=== PATIENT | male | born 1970 | race African-American/Black ===

== ENCOUNTER 2023-02-04 11:07 | Observation (INO) | payer MEDICAID, OTHER ==
[2023-02-04 12:07] LABS: #Basophils 0.1 10x3/uL (0.0-0.2); #Eosinphils 0.1 10x3/uL (0.0-0.5); #Monocytes 0.7 10x3/uL (0.0-1.1); #Neutrophils 5.3 10x3/uL (1.5-8.4); %Basophils 0.6 % (0.0-2.0); %Eosinophils 1.4 % (0.0-6.0); %Lymphocytes 26.3 % (18.0-47.0); %Monocytes 8.3 % (0.0-10.0); %Neutrophils 62.5 % (40.0-75.0); Hematocrit 47.7 % (38.8-50.0); Hemoglobin 15.8 g/dL (13.5-17.5); Mean Corpuscular HGB CONC 33.1 g/dL (32.0-36.0); Mean Corpuscular Hemoglobin 28.2 pg (27.0-33.0); Mean Corpuscular Volume 85.2 fl (81.2-95.1); Mean Platelet Volume 8.9 fl (7.4-10.4); Platelet Count 215 10x3/uL (150-450); RBC Distribution Width 15.5 % (11.5-14.5); White Blood Cell (WBC) Count 8.5 10x3/uL (3.5-10.5)
[2023-02-04 12:18] LABS: ALT (SGPT) 37 U/L (8-55); AST (SGOT) 30 U/L (5-34); Albumin 3.9 g/dL (3.5-5.0); Alkaline Phosphatase 89 U/L (40-110); Anion Gap 14 mmol/L (10-20); BUN (Urea Nitrogen) 11 mg/dL (8.4-25.7); Bilirubin, Total 0.6 mg/dL (0.2-1.2); Calc. Creatinine Clearance 0 mL/min (70-130); Calcium 8.4 mg/dL (7.8-10.44); Carbon Dioxide 30 mmol/L (22-29); Chloride 101 mmol/L (98-107); Estimated GFR 87; Globulin 3.1 g/dL (2.4-3.5); Glucose 117 mg/dL (70-105); Potassium 3.7 mmol/L (3.5-5.1); Sodium 141 mmol/L (136-145)
[2023-02-04 12:24] LABS: Troponin I 0.025 ng/mL (< 0.028)
[2023-02-04] MEDS ORDERED: Nitroglycerin 2% Ointment 1 INCH/1 GM Packet ONE (15:05)
[2023-02-04] MEDS ORDERED: Nitroglycerin 0.4 MG TAB 1 EACH ONE (15:20)
[2023-02-04 15:33] LABS: Troponin I 0.012 ng/mL (< 0.028)
[2023-02-04] MEDS ORDERED: Ondansetron PF 4 MG/2 ML Vial IVP PRN (16:55)
[2023-02-04 18:44] LABS: Troponin I 0.015 ng/mL (< 0.028)
[2023-02-04 21:51] LABS: Troponin I 0.017 ng/mL (< 0.028)
[2023-02-04 22:54] LABS: Amphetamine Not Detected (NotDetected); Barbiturates Screen Not Detected (NotDetected); Benzodiazepine Screen Not Detected (NotDetected); Cocaine Metabolite Screen Detected (NotDetected); Methadone Not Detected (NotDetected); Methamphetamine Not Detected (NotDetected); Opiate Screen Detected (NotDetected); Oxycodone Screen Not Detected (NotDetected); Phencyclidine (PCP) Not Detected (NotDetected); THC/Cannabinoid Screen Not Detected (NotDetected); Tricyclic Screen Not Detected (NotDetected)
[2023-02-04 22:59] VITALS: BMI 32.5
[2023-02-05] MEDS ORDERED: hydrOXYzine 25 MG TAB PO SCH (01:00)
[2023-02-05] MEDS ORDERED: Lorazepam 2 MG/ML VIAL SLOW IVP SCH (01:30)
[2023-02-05 05:25] LABS: #Eosinphils 0.1 10x3/uL (0.0-0.5); #Monocytes 0.8 10x3/uL (0.0-1.1); #Neutrophils 4.2 10x3/uL (1.5-8.4); %Basophils 0.5 % (0.0-2.0); %Eosinophils 1.3 % (0.0-6.0); %Lymphocytes 34.2 % (18.0-47.0); %Monocytes 9.5 % (0.0-10.0); %Neutrophils 53.6 % (40.0-75.0); Hematocrit 45.1 % (38.8-50.0); Hemoglobin 14.8 g/dL (13.5-17.5); Mean Corpuscular HGB CONC 32.8 g/dL (32.0-36.0); Mean Corpuscular Hemoglobin 27.8 pg (27.0-33.0); Mean Corpuscular Volume 84.8 fl (81.2-95.1); Platelet Count 198 10x3/uL (150-450); RBC Distribution Width 15.6 % (11.5-14.5); Red Blood Cell (RBC) Count 5.32 10x6/uL (4.32-5.72); White Blood Cell (WBC) Count 7.9 10x3/uL (3.5-10.5)
[2023-02-05 05:27] LABS: Anion Gap 15 mmol/L (10-20); BUN (Urea Nitrogen) 13 mg/dL (8.4-25.7); Calc. Creatinine Clearance 137 mL/min (70-130); Calcium 8.4 mg/dL (7.8-10.44); Carbon Dioxide 26 mmol/L (22-29); Chloride 103 mmol/L (98-107); Estimated GFR 95; Glucose 139 mg/dL (70-105); Potassium 3.7 mmol/L (3.5-5.1); Sodium 140 mmol/L (136-145)
[2023-02-05] MEDS ORDERED: Aspirin Chewable 81 MG TAB PO SCH (09:00)
[2023-02-05 09:25] LABS: Magnesium 1.7 mg/dL (1.6-2.6)
[2023-02-05] MEDS ORDERED: Magnesium 2 GM/50 ML(in water) 2 GM in Premix 1 BAG IVPB SCH (10:00)
[2023-02-05] MEDS ORDERED: Potassium Chloride 20 MEQ TAB PO SCH (10:00)
[2023-02-05] MEDS ORDERED: Lorazepam 0.5 MG TAB PO PRN (10:20)
[2023-02-05] MEDS: Nicotine 14 MG PATCH TD SCH ×2 (10:33→10:46)
[2023-02-05] MEDS ORDERED: cloNIDine 0.1 MG TAB PO PRN ×2 (10:41→13:20)
[2023-02-05] MEDS ORDERED: Baclofen 10 MG TAB PO PRN ×2 (10:41→11:01)
[2023-02-05] MEDS ORDERED: hydrOXYzine 25 MG TAB PO PRN (10:41)
[2023-02-05] MEDS ORDERED: Loratadine 10 MG TAB PO PRN (11:05)
[2023-02-05 11:14] LABS: Troponin I 0.033 ng/mL (< 0.028)
[2023-02-05] MEDS ORDERED: Clopidogrel Bisulfate 75 MG TAB PO SCH (11:15)
[2023-02-05] MEDS ORDERED: Clotrimazole 1% Cream 15 GM TUBE TOP SCH (12:00)
[2023-02-05 12:46] VITALS: TEMP 97.7
[2023-02-05] MEDS ORDERED: Amlodipine 5 MG TAB PO SCH (13:15)
[2023-02-05] MEDS ORDERED: Nitroglycerin 2% Ointment 1 INCH/1 GM Packet TOP SCH ×2 (13:15→14:00)
[2023-02-05 13:18] VITALS: BP 144/74
[2023-02-05 14:20] LABS: Troponin I 0.036 ng/mL (< 0.028)
[2023-02-05] MEDS ORDERED: Cephalexin 500 MG CAP PO SCH (15:00)
[2023-02-05] MEDS ORDERED: traZODone HCl 50 MG TAB PO SCH (21:00)
[2023-02-05] MEDS ORDERED: Atorvastatin Calcium 40 MG TAB PO SCH (21:00)
[2023-02-05] MEDS ORDERED: Heparin 5,000 UNITS/ML VIAL SC SCH (21:00)
[2023-02-06] MEDS ORDERED: [UNRECOGNIZED DRUG - OTHER] PO SCH (09:00)
[2023-02-06] MEDS ORDERED: Amlodipine 5 MG TAB PO SCH (09:00)
[2023-02-06] MEDS ORDERED: Clopidogrel Bisulfate 75 MG TAB PO SCH (09:00)
[2023-02-06] MEDS ORDERED: Tamsulosin HCl 0.4 MG CAP PO SCH (09:00)
[2023-02-06] MEDS ORDERED: traZODone HCl 50 MG TAB PO SCH (09:00)
[2023-02-06] MEDS ORDERED: Torsemide 20 MG TAB PO SCH ×2 (09:00)
== END 2023-02-05 15:43 | disposition left against medical advice (07) ==
LOC: CSHERS 11:07 → CSHERHOLD 16:40 → CSHTELE 22:44
PROVIDERS: ADMIT Internal Medicine; ATTEND Internal Medicine
PROC: B246ZZZ Ultrasonography of Right and Left Heart (ICD-10-PCS; principal; 2023-02-04)
DX: R07.2 Precordial pain (principal); I10 Essential (primary) hypertension; B20 Human immunodeficiency virus [HIV] disease; F31.9 Bipolar disorder, unspecified; F14.10 Cocaine abuse, uncomplicated; F17.210 Nicotine dependence, cigarettes, uncomplicated; Z79.82 Long term (current) use of aspirin; Z79.899 Other long term (current) drug therapy; Z91.012 Allergy to eggs; Z91.011 Allergy to milk products; Z88.0 Allergy status to penicillin
CPT/HCPCS: 36415; 71045; 80048; 80053; 80306; 83690; 83735; 83880; 84484; 85025; 93005; 93010; 93306; 94760; 96372; 96374; 96375; G0378; J1650; J2060; J3475